=== PATIENT | male | born 1970 | race Caucasian/White ===

== ENCOUNTER 2021-12-28 15:01 | Emergency (ER) | payer OTHER ==
[2021-12-28 16:44] LABS: Hemoglobin 14.8 g/dL (14.0-18.0); Mean Corpuscular HGB CONC 34.1 g/dL (32.0-36.0); Mean Corpuscular Hemoglobin 35.4 pg (27.0-31.0); Mean Platelet Volume 8.2 fL (7.4-10.4); Platelet Count 277 10x3/uL (130-400); RBC Distribution Width 12.9 % (11.5-14.5); Red Blood Cell (RBC) Count 4.19 mill/uL (4.70-6.10); White Blood Cell (WBC) Count 5.8 10x3/uL (4.8-10.8)
[2021-12-28 17:06] LABS: Band 2 % (5-11); Eosinophils 5 % (0-10); Lymphocytes 12 % (21-51); MDiff Complete? YES; Macrocytosis SLIGHT = 6-15 cells (100X) (0-5/hpf); Monocytes 12 % (0-10); Neutrophil 66 % (42-75); Platelet Morphology Comment Appears Adequate; Polychromasia SLIGHT = 2-3 cells (100X) (0-2/hpf); Reactive Lymphocytes 2 % (0-10)
[2021-12-28 17:10] LABS: ALT (SGPT) 10 U/L (8-55); AST (SGOT) 35 U/L (5-34); Albumin 3.1 g/dL (3.5-5.0); Alkaline Phosphatase 112 U/L (40-110); Anion Gap 13 mmol/L (10-20); BUN (Urea Nitrogen) 10 mg/dL (8.4-25.7); Bilirubin, Total 1.6 mg/dL (0.2-1.2); Calc. Creatinine Clearance 0 mL/min (70-130); Calcium 9.3 mg/dL (7.8-10.44); Carbon Dioxide 26 mmol/L (22-29); Chloride 98 mmol/L (98-107); Estimated GFR 102; Globulin 3.7 g/dL (2.4-3.5); Glucose 84 mg/dL (70-105); Lipase 48 U/L (8-78); Potassium 4.7 mmol/L (3.5-5.1); Protein, Total 6.8 g/dL (6.0-8.3); Sodium 132 mmol/L (136-145)
[2021-12-28 17:35] LABS: INR-International Normal Ratio 1.2; PTT 39.1 sec (22.9-36.1); Prothrombin Time 15.8 sec (12.0-14.7)
[2021-12-28] MEDS ORDERED: Lidocaine 1% (PF) 30 ML VIAL ONE (18:44)
[2021-12-28 19:57] LABS: RBC Count-Automated (BF) 55 /cu.mm; WBC/Nucleated-Auto (BF) 78 /cu.mm
[2021-12-28 20:15] LABS: BF Color Yellow; Body Fluid Source Ascites Body Fluid; Clarity Clear (Clear); Tube # EDTA
[2021-12-28 20:16] LABS: BF Segmented Neutrophils 11 %; Cell Count Non Hematic 68 %; Lymphocytes 21 %
== END 2021-12-28 23:16 | disposition home or self-care (01) ==
LOC: ERS 15:01
DX: R18.8 Other ascites (principal)
CPT/HCPCS: 36415; 49083; 80053; 83690; 85025; 85060; 85610; 85730; 87070; 87205; 89051; J2001